=== PATIENT | female | born 1985 ===

== ENCOUNTER 2016-09-25 10:14 | Emergency (ER) | payer MEDICAID ==
[2016-09-25 10:28] VITALS: BP 107/67; PULSE 64; RESP 18; TEMP 98.3; O2SAT 100
--- NOTE | 2016-09-25 11:21 | ED PDOC ---
HPI: Abdomen Time Seen by Provider: 09/25/16 10:29 Chief Complaint (Nursing): Abdominal Pain History Per: Patient History/Exam Limitations: no limitations Onset/Duration Of Symptoms: Days (1) Location Of Pain/Discomfort: Suprapubic Associated Symptoms: denies: Nausea, Vomiting Additional Complaint(s): 31-year-old female, (1, ectopic), presents to the emergency department with complaints of suprapubic cramping that started yesterday. Patient notes associating brown spotting, that has now resolved. States she did not take any medication for pain. Symptoms worsened this morning, resulting in her coming to the emergency department for evaluation. LKMP: 09/07. Denies vaginal discharge, nausea/vomiting, diarrhea, fevers, chills, chest pain, Hx of similar or any other associated symptoms. No other complaints at this time. Past Medical History Reviewed: Historical Data, Nursing Documentation, Vital Signs Vital Signs: Last Vital Signs Temp 98.3 F 09/25/16 10:27 Pulse 64 09/25/16 10:27 Resp 18 09/25/16 10:27 BP 107/67 09/25/16 10:27 Pulse Ox 100 09/25/16 13:41 - Medical History PMH: Asthma - Family History Family History: States: Unknown Family Hx - Home Medications Home Medications: Ambulatory Orders Medication Instructions Recorded Acetaminophen with Codeine 1 tab PO Q6H PRN #15 tab 09/25/16 [Tylenol with Codeine No. 3 300 mg-30 mg] - Allergies Allergies/Adverse Reactions: Allergies Allergy/AdvReac Type Severity Reaction Status Date / Time aspirin Allergy RASH Verified 09/25/16 10:42 Review of Systems ROS Statement: Except As Marked, All Systems Reviewed And Found Negative Constitutional: Negative for: Fever, Chills Respiratory: Negative for: Cough, Shortness of Breath Gastrointestinal: Negative for: Nausea, Vomiting Genitourinary Female: Positive for: Vaginal Bleeding, Pelvic Pain. Negative for : Dysuria, Frequency Musculoskeletal: Negative for: Neck Pain, Back Pain Skin: Negative for: Rash Neurological: Negative for: Headache, Dizziness Physical Exam - Reviewed Nursing Documentation Reviewed: Yes Vital Signs Reviewed: Yes - Physical Exam Appears: Positive for: Non-toxic, No Acute Distress Head Exam: Positive for: ATRAUMATIC, NORMOCEPHALIC Skin: Positive for: Warm, Dry. Negative for: Rash Eye Exam: Positive for: Normal appearance Neck: Positive for: Painless ROM Cardiovascular/Chest: Positive for: Regular Rate, Rhythm Respiratory: Negative for: Accessory Muscle Use, Respiratory Distress Gastrointestinal/Abdominal: Positive for: Soft, Tenderness (mild, suprapubic). Negative for: Guarding, Rebound Pelvic Exam: Positive for: Other ((+) Cervical Motion Tenderness. (+) white homogeneous discharged. Cervical Os closed) Extremity: Positive for: Normal ROM Neurologic/Psych: Positive for: Alert, Oriented - Laboratory Results Result Diagrams: 09/25/16 14:00 09/25/16 14:00 - ECG O2 Sat by Pulse Oximetry: 100 Medical Decision Making Medical Decision Making: Plan * Urine Culture * Reassess and Disposition Scribe Attestation: Documented by Vita Gupta, acting as a scribe for KERVIN Savage. Provider Scribe Attestation: All medical record entries made by the Scribe were at my direction and personally dictated by me. I have reviewed the chart and agree that the record accurately reflects my personal performance of the history, physical exam, medical decision making, and the department course for this patient. I have also personally directed, reviewed, and agree with the discharge instructions and disposition. Disposition - Clinical Impression Clinical Impression: Pelvic pain - Patient ED Disposition Is Patient to be Admitted: No Counseled Patient/Family Regarding: Diagnosis, Need For Followup - Disposition Disposition: Routine/Home Disposition Time: 16:28 Condition: GOOD Additional Instructions: Cultures pending Prescriptions: Acetaminophen with Codeine [Tylenol with Codeine No. 3 300 mg-30 mg] 1 tab PO Q6H PRN #15 tab PRN Reason: Pain, Severe (8-10) Instructions: Pelvic Pain in Women (ED)
[2016-09-25 12:30] LABS: RBC URINE 1 /hpf (0-3); URINE BACTERIA RARE (<OCC); URINE BILIRUBIN NEGATIVE (NEGATIVE); URINE BLOOD NEGATIVE (NEGATIVE); URINE COLOR YELLOW (YELLOW); URINE GLUCOSE (UA) NEG (Normal); URINE KETONE NEGATIVE (NEGATIVE); URINE LEUKOCYTE ESTERASE NEG Leu/uL (Negative); URINE PROTEIN NEGATIVE (NEGATIVE); URINE UROBILINOGEN 0.2-1.0 mg/dL (0.2-1.0); WBC URINE 1 /hpf (0-5)
[2016-09-25] MEDS ORDERED: Acetaminophen-Codeine 300/30 mg Tab PO STA (13:02)
[2016-09-25] MEDS ORDERED: Acetaminophen-Codeine 300/30 mg Tab ONE (13:53)
[2016-09-25 14:17] LABS: HEMATOCRIT 40.7 % (34.0-47.0); MEAN CELL VOLUME 89.6 fl (81.0-99.0); MEAN CORPUSCULAR HEMOGLOBIN 30.5 pg (27.0-31.0); RED CELL DISTRIBUTION WIDTH 12.8 % (11.5-14.5); WHITE BLOOD COUNT 7.6 K/uL (4.8-10.8)
[2016-09-25 14:32] LABS: ALKALINE PHOSPHATASE 68 U/L (38-126); ALT/SGPT 17 U/L (9-52); AST/SGOT 21 U/L (14-36); BILIRUBIN,TOTAL 0.6 mg/dl (0.2-1.3); BLOOD UREA NITROGEN 8 mg/dl (7-17); CALCIUM 9.4 mg/dL (8.4-10.2); CARBON DIOXIDE 25 mmol/L (22-30); CHLORIDE 103 mmol/L (98-107); GFR AFRICAN-AMERICAN > 60; GLUCOSE,RANDOM 87 mg/dL (65-105); POTASSIUM 3.8 MMOL/L (3.6-5.0); SODIUM 142 mmol/l (132-148); TOTAL PROTEIN 8.2 G/DL (6.3-8.2)
[2016-09-25 14:33] LABS: ALB/GLOB RATIO 1.1 (1.0-2.1)
--- NOTE | 2016-09-25 17:12 | US ---
HISTORY: pelvic pain COMPARISON: None available. TECHNIQUE: Transvaginal FINDINGS: UTERUS: Measures 8.2 x 6.8 x 4.5 cm. Normal in size and appearance. No fibroid or other mass lesion seen. ENDOMETRIUM: Measures 9 mm in diameter. Unremarkable. CERVIX: No cervical abnormality identified. RIGHT OVARY: Measures 3.6 x 2.5 x 2.5 cm. No solid mass. Normal flow. LEFT OVARY: Measures 4.1 x 3.9 x 2.8 cm. No solid mass. Normal flow. FREE FLUID: Small amount of free fluid noted in cul-de-sac, nonspecific. OTHER FINDINGS: None. IMPRESSION: Small amount of fluid in cul-de-sac, nonspecific. Otherwise unremarkable examination.
== END 2016-09-25 16:45 | disposition home or self-care (01) ==
LOC: SUPCPDRO 10:14 → H.ER 10:14
DX: R10.2 Pelvic and perineal pain (principal); J45.909 Unspecified asthma, uncomplicated